=== PATIENT | female | born 1990 | race Caucasian/White ===

== ENCOUNTER 2018-12-16 17:04 | Emergency (ER) | payer OTHER ==
[~2018-12-16] VITALS: Ht 170.2 cm; Wt 70.8 kg
[2018-12-16 17:08] VITALS: Ht 170.2 cm; Wt 70.8 kg
[2018-12-16 18:48] VITALS: BP 106/75
== END 2018-12-16 18:48 | disposition home or self-care (01) ==
LOC: ED 17:04
DX: O26.891 Other specified pregnancy related conditions, first trimester (principal); R10.9 Unspecified abdominal pain; M54.5 Low back pain; Z3A.08 8 weeks gestation of pregnancy